=== PATIENT | female | born 2000 | race African-American/Black ===

== ENCOUNTER 2024-12-06 22:54 | Inpatient (IN) | payer BC, OTHER ==
[2024-12-06 23:28] VITALS: BMI 30.7
[2024-12-07] MEDS ORDERED: Diphenoxylate HCl/Atropine Tablet PO PRN ×2 (00:24)
[2024-12-07] MEDS ORDERED: hydrALAZINE 20 MG/ML VIAL SLOW IVP PRN ×3 (00:24→08:19)
[2024-12-07] MEDS ORDERED: HYDROcodone/Acetaminophen 5/325 mg Tablet PO PRN (00:24)
[2024-12-07] MEDS ORDERED: Carboprost 250 MCG/ML AMP IM PRN (00:24)
[2024-12-07] MEDS ORDERED: Ondansetron PF 4 MG/2 ML Vial IVP PRN ×3 (00:24→08:19)
[2024-12-07] MEDS ORDERED: Methylergonovine 0.2 MG/ML VIAL IM PRN ×2 (00:24→08:19)
[2024-12-07] MEDS ORDERED: Lidocaine 1% (PF) 30 ML VIAL SC PRN (00:24)
[2024-12-07] MEDS ORDERED: Tranexamic Acid 1,000 MG/10 ML VIAL IVP PRN (00:24)
[2024-12-07] MEDS ORDERED: Oxytocin 30 units/NS 500 ML 500 ML IV SCH ×2 (00:30→08:30)
[2024-12-07 00:52] LABS: Hematocrit 37.0 % (34.9-44.5); Hemoglobin 12.1 g/dL (12.0-15.5); Mean Corpuscular Hemoglobin 27.1 pg (27.0-33.0); Mean Corpuscular Volume 83.0 fL (81.6-98.3); Platelet Count 193 10x3/uL (150-450); Red Blood Cell (RBC) Count 4.46 10x6/uL (3.90-5.03); White Blood Cell (WBC) Count 11.83 10x3/uL (3.5-10.5)
[2024-12-07] MEDS ORDERED: Acetaminophen 325 MG TAB PO PRN (01:14)
[2024-12-07] MEDS ORDERED: diphenhydrAMINE 50 MG/ML VIAL IVP PRN (01:14)
[2024-12-07] MEDS ORDERED: Communication Order-Pharmacy FS SCH (01:15)
[2024-12-07 01:31] LABS: Hep B Surf Ag - L&D Non-Reactive S/CO (NonReactive)
[2024-12-07 01:32] LABS: Syphilis Antibody Index 0.07 S/CO (<1.00 Non-Reactive)
[2024-12-07] MEDS: fentaNYL 2 mcg/Ropivacaine 0.2% Epidural 100 ML CADD EPIDURAL SCH (01:32)
[2024-12-07] MEDS: Oxytocin 30 units/NS 500 ML 500 ML IV SCH (06:00)
[2024-12-07] MEDS ORDERED: Preparation H Ointment 28 GM TUBE PR PRN (08:19)
[2024-12-07] MEDS ORDERED: diphenhydrAMINE 25 MG CAP PO PRN (08:19)
[2024-12-07] MEDS ORDERED: Milk Of Magnesia 30 ML UDCUP PO PRN (08:19)
[2024-12-07] MEDS ORDERED: Methylergonovine 0.2 MG TAB PO PRN (08:19)
[2024-12-07] MEDS ORDERED: Bisacodyl 10 MG SUPP PR PRN (08:19)
[2024-12-07] MEDS ORDERED: Benzocaine-Menthol 82.5 ML CAN TOP PRN (08:19)
[2024-12-07] MEDS ORDERED: Lanolin Ointment 7 GM TUBE TOP PRN (08:19)
[2024-12-07] MEDS: Ibuprofen 800 MG TAB PO PRN (08:54)
[2024-12-07] MEDS: fentaNYL/Ropivacaine Epidural 100 ML ONE (11:52)
[2024-12-07] MEDS: Boostrix 0.5 ML (Tdap) VIAL (>/=7 yrs of age) IM ONE (11:52)
[2024-12-07] MEDS: Ibuprofen 800 MG TAB PO SCH (16:01)
[2024-12-07] MEDS: Ferrous Sulfate 325 MG TAB PO SCH (16:08)
[2024-12-07] MEDS: HYDROcodone/Acetaminophen 5/325 mg Tablet PO PRN (20:54)
[2024-12-09 09:52] VITALS: BP 121/55; TEMP 98.1
== END 2024-12-09 15:55 | disposition home or self-care (01) | DRG 807 ==
LOC: CSHLD/OP 22:54 → CSHLD 12-07 00:24 → CSHPP 12-07 11:00
PROVIDERS: ADMIT Family Medicine; ATTEND Family Medicine
PROC: 10E0XZZ Delivery of Products of Conception, External Approach (ICD-10-PCS; principal; 2024-12-07)
PROC: 0KQM0ZZ Repair Perineum Muscle, Open Approach (ICD-10-PCS; 2024-12-07)
PROC: 0UQGXZZ Repair Vagina, External Approach (ICD-10-PCS; 2024-12-07)
DX: O42.02 Full-term premature rupture of membranes, onset of labor within 24 hours of rupture (principal); Z37.0 Single live birth; O77.0 Labor and delivery complicated by meconium in amniotic fluid; Z3A.38 38 weeks gestation of pregnancy; O70.1 Second degree perineal laceration during delivery; O99.02 Anemia complicating childbirth; D50.9 Iron deficiency anemia, unspecified
CPT/HCPCS: 36415; 51702; 85027; 86780; 86850; 86900; 86901; 87340; 88305; 99285; J2590